=== PATIENT | female | born 1945 | race Caucasian/White ===

== ENCOUNTER → 2023-05-05 | Outpatient (CLI) | payer MEDICARE ==
--- NOTE | 2023-05-09 10:01 | NM ---
EXAMINATION TYPE: NM DatScan Brain SPECT DATE OF EXAM: 05/05/2023 COMPARISON: NONE CLINICAL INDICATION: Female, 77 years old with history of G25.0 tremors; TECHNIQUE: 10 drops of Lugol's solution was administered 1 hour prior to injection as a thyroid bloc hollis agent. After the administration of 4.4 mCi I-123 Ioflupane DaTscan. Images obtained [address] injection[address] SPECT images of the brain were acquired with axial and coronal reconstructions. FINDINGS: There is normal bilateral symmetric activity in the corpus striata. No abnormal increased background activity. IMPRESSION: Normal appearance is against a diagnosis of Parkinson's disease or a parkinsonian syndrome. It can be seen in normal individuals and also those with essential tremor.
== END | disposition home or self-care (01) ==
LOC: RADNMMAIN 10:46
PROVIDERS: ATTEND Psychiatry & Neurology Neurology
DX: G25.0 Essential tremor (principal)
CPT/HCPCS: 78803; A9584